=== PATIENT | male | born 1970 | race African-American/Black ===

== ENCOUNTER 2016-12-07 10:40 | Emergency (ER) | payer MEDICAID ==
[2016-12-07 11:07] VITALS: BP 162/96; PULSE 74; RESP 18; TEMP 98; O2SAT 94
--- NOTE | 2016-12-07 11:12 | EDPHY ---
H & P Stated Complaint: c/o lt sided neck pain since Tuesday- denies trauma Time Seen by Provider: 12/07/16 11:02 HPI/ROS: CHIEF COMPLAINT: Neck pain HISTORY OF PRESENT ILLNESS: Patient is a 46-year-old man with left-sided neck and trapezius pain. The pain is increased when he looks to the right. He does not remember specific source of his pain. It began hurting this morning when he woke up. He denies fevers. He denies bony tenderness. No neurologic symptoms. No chest pain or shortness of breath. It is improved with massage. REVIEW OF SYSTEMS: Constitutional: denies: chills, fever, recent illness, recent injury EENTM: denies: blurred vision, double vision, nose congestion Respiratory: denies: cough, shortness of breath Cardiac: denies: chest pain, irregular heart rate, lightheadedness, palpitations Gastrointestinal/Abdominal: denies: abdominal pain, diarrhea, nausea, vomiting, blood streaked stools Genitourinary: denies: dysuria, frequency, hematuria, pain Musculoskeletal: See HPI Skin: denies: lesions, rash, jaundice, bruising Neurological: denies: headache, numbness, paresthesia, tingling, dizziness, weakness Hematologic/Lymphatic: denies: blood clots, easy bleeding, easy bruising Immunologic/allergic: denies: HIV/AIDS, transplant GENERAL: Well-appearing, well-nourished and in no acute distress. HEAD: Atraumatic, normocephalic. EYES: Pupils equal round and reactive to light, extraocular movements intact, sclera anicteric, conjunctiva are normal. ENT: TMs normal, nares patent, oropharynx clear without exudates. Moist mucous membranes. NECK: Tenderness to left trapezius area, improves with massage. LUNGS: Breath sounds clear to auscultation bilaterally and equal. No wheezes rales or rhonchi. HEART: Regular rate and rhythm without murmurs, rubs or gallops. ABDOMEN: Soft, nontender, normoactive bowel sounds. No guarding, no rebound. No masses appreciated. BACK: No CVA tenderness, no spinal tenderness, step-offs or deformities EXTREMITIES: Normal range of motion, no pitting or edema. No clubbing or cyanosis. NEUROLOGICAL: Cranial nerves II through XII grossly intact. Normal speech, normal gait. /5 strength, normal movement in all extremities, normal sensation PSYCH: Normal mood, normal affect. SKIN: Warm, dry, normal turgor, no visible rashes or lesions. Source: Patient Exam Limitations: No limitations - Personal History Current Tetanus Diphtheria and Acellular Pertussis (TDAP): Yes - Medical/Surgical History Hx Asthma: No Hx Chronic Respiratory Disease: No Hx Diabetes: No Hx Cardiac Disease: No Hx Renal Disease: No Hx Cirrhosis: No Hx Alcoholism: No - Family History Significant Family History: No pertinent family hx - Social History Smoking Status: Never smoked Alcohol Use: Sober Drug Use: None Constitutional: Initial Vital Signs Temperature (C) 36.6 C 12/07/16 11:05 Heart Rate 74 12/07/16 11:05 Respiratory Rate 18 12/07/16 11:05 Blood Pressure 162/96 H 12/07/16 11:05 O2 Sat (%) 94 12/07/16 11:05 O2 Delivery Mode Room Air Allergies/Adverse Reactions: No Known Allergies Allergy (Unverified 01/23/11 08:31) Home Medications: Medication Instructions Recorded None 01/23/11 Cyclobenzaprine [Flexeril 10 MG 10 mg PO TID PRN #15 tab 12/07/16 (*)] Medical Decision Making - Diagnostics EKG Interpretation: An EKG obtained and was read and documented in trace view. Please see trace view for full reading and report. Sinus rhythm, no ischemic changes ED Course/Re-evaluation: The patient appears to have a strain his left trapezius muscle. He does not remember how it happened. I will obtain an EKG for reassurance. We discussed options. He would like to try Flexeril. He will follow up in 48 hours for re- evaluation. Differential Diagnosis: Partial list of the Differential diagnosis considered include but were not limited to; muscle strain, neuropathy, and although unlikely based on the history and physical exam, I also considered acute coronary disease, fracture, spinal cord injury. I discussed these differential diagnoses and the plan with the patient as well as the usual and expected course. The patient understands that the diagnosis is provisional and that in medicine we are not always correct and that further workup is often warranted. Usual and customary warnings were given. All of the patient's questions were answered. The patient was instructed to return to the emergency department should the symptoms at all worsen or return, otherwise to followup with the physician as we discussed. Departure - Departure Disposition: Home, Routine, Self-Care Clinical Impression: Neck muscle strain Qualifiers: Encounter type: initial encounter Qualified Code(s): S16.1XXA - Strain of muscle, fascia and tendon at neck level, initial encounter Condition: Fair Instructions: Cervical Strain (ED) Referrals: Minnie Santacruz MD [Medical Doctor] - As per Instructions Prescriptions: Cyclobenzaprine [Flexeril 10 MG (*)] 10 mg PO TID PRN #15 tab PRN Reason: Spasms
--- NOTE | 2016-12-07 11:22 | CPEKG ---
Heart Rate: 70 RR Interval: 857 P-R Interval: 200 QRSD Interval: 86 QT Interval: 380 QTC Interval: 410 P Florence: 37 QRS Florence: -11 T Wave [place]: 21 EKG Severity - NORMAL ECG - EKG Impression: SINUS RHYTHM Electronically Signed By: Nolan Guerin 07-Dec-2016 11:25:34
== END 2016-12-07 11:42 | disposition home or self-care (01) ==
LOC: CED 10:40
DX: S16.1XXA Strain of muscle, fascia and tendon at neck level, initial encounter (principal); X58.XXXA Exposure to other specified factors, initial encounter